=== PATIENT | female | born 1955 | race Caucasian/White ===

== ENCOUNTER 2018-12-27 14:17 | Emergency (ER) | payer OTHER ==
[~2018-12-27] VITALS: Ht 175.3 cm; Wt 100.0 kg
[2018-12-27] MEDS ORDERED: CORTISPORIN OTI10 ML AD (16:25)
[2018-12-27 16:32] VITALS: BP 185/78
== END 2018-12-27 16:39 | disposition home or self-care (01) | DRG 156 ==
LOC: ED 14:17
DX: T16.1XXA Foreign body in right ear, initial encounter (principal); T63.481A Toxic effect of venom of other arthropod, accidental (unintentional), initial encounter; X58.XXXA Exposure to other specified factors, initial encounter